=== PATIENT | female | born 1995 | race Caucasian/White ===

== ENCOUNTER 2017-08-18 03:50 | Emergency (ER) | payer OTHER ==
[~2017-08-18] VITALS: Ht 170.2 cm; Wt 70.8 kg
[2017-08-18 04:00] VITALS: BP_SYST 130
[2017-08-18 05:10] VITALS: BP_SYST 128
== END 2017-08-18 05:10 ==
LOC: SED 03:50
DX: Z02.89 Encounter for other administrative examinations (principal); S20.312A Abrasion of left front wall of thorax, initial encounter; V89.2XXA Person injured in unspecified motor-vehicle accident, traffic, initial encounter; Y93.89 Activity, other specified; Y92.89 Other specified places as the place of occurrence of the external cause; Y99.8 Other external cause status

== ENCOUNTER 2018-03-01 00:14 | Emergency (ER) | payer MEDICAID, OTHER ==
[~2018-03-01] VITALS: Ht 170.2 cm; Wt 65.3 kg
[2018-03-01 00:20] VITALS: BP_SYST 111
--- NOTE | 2018-03-01 00:20 | NUR ---
Patient to ER bed 7 to gown for evaluation. Side rails up. Report given to APURVA MAHONEY.
--- NOTE | 2018-03-01 00:34 | NUR ---
ER at bedside examining patient.
[2018-03-01] MEDS ORDERED: NACL 0.9% 1,000 ML IV ONE (00:36)
--- NOTE | 2018-03-01 00:37 | NUR ---
Patient brought in with boyfriend complaining of severe stabbing pelvic pain starting an hour and half prior to arrival to ED. Patient reports that she took a pill for on Sunday and has been passing clots since then but with little to no pain. Pain 10/10. No other complaints/injuries per patient or as noted. Will continue to monitor.
[2018-03-01] MEDS ORDERED: KETOROLAC TROMETHAMINE 30 MG VIAL IVP ONE (00:45)
[2018-03-01] MEDS ORDERED: ONDANSETRON HCL 4 MG/2 ML VIAL IVP ONE (00:45)
[2018-03-01] MEDS ORDERED: MORPHINE 4 MG/ML INJ. SYRINGE IVP ONE ×2 (00:45→01:15)
--- NOTE | 2018-03-01 00:49 | NUR ---
Medicated per MD orders. IVF infusing with no s/s of infiltration at this time. Will cont to monitor
[2018-03-01 01:06] LABS: BASOPHILS # (AUTO) 0.1 K/uL (0.0-0.2); BASOPHILS % (AUTO) 0.4 % (0.0-2.0); EOSINOPHILS # (AUTO) 0.3 K/uL (0.0-0.4); EOSINOPHILS % (AUTO) 2.6 % (0.0-4.0); HEMATOCRIT 37.4 % (36-48); LYMPHOCYTES # (AUTO) 3.6 K/uL (1.0-5.5); LYMPHOCYTES % (AUTO) 28.2 % (20.5-51.5); MEAN CORPUSCULAR HEMOGLOBIN 33 pg (27-31); MEAN CORPUSCULAR HGB CONC 35 % (32-36); MEAN CORPUSCULAR VOLUME 95 fL (79.0-98.0); MONOCYTES # (AUTO) 0.8 K/uL (0.0-1.0); MONOCYTES % (AUTO) 6.3 % (1.7-9.3); NEUTROPHILS # (AUTO) 8.1 K/uL (1.8-7.7); NEUTROPHILS % (AUTO) 62.5 % (40.0-70.0); PLATELET COUNT (AUTO) 322 K/uL (130-430); RED BLOOD CELL COUNT(AUTO) 3.92 MIL/uL (4.2-6.2); RED CELL DISTRIBUTION WIDTH 11.6 % (9.0-15.0); WHITE BLOOD COUNT (AUTO) 12.9 K/uL (4.8-10.8)
--- NOTE | 2018-03-01 01:08 | NUR ---
Accompanied Dr. Keita to perform pelvic exam. Pt tolerated well.
[2018-03-01] MEDS ORDERED: DIPHENHYDRAMINE INJ 50 MG/ML VIAL IVP ONE (01:15)
--- NOTE | 2018-03-01 01:16 | NUR ---
Medicated per MD orders. Will cont to monitor
[2018-03-01] MEDS ORDERED: HYDROmorphone 1 MG INJ. 1 MG/ML AMPUL IVP ONE ×2 (01:30→02:15)
--- NOTE | 2018-03-01 01:32 | NUR ---
Patient off unit to ultrasound.
--- NOTE | 2018-03-01 01:50 | NUR ---
Patient returned from ultrasound. VSS. Will continue to monitor.
--- NOTE | 2018-03-01 01:54 | NUR ---
Medicated with Diuladed 0.5 mg IVP. Patient tolerated well.
--- NOTE | 2018-03-01 02:25 | NUR ---
Medicated with IV Diuladid 0.5 mg. Patient tolerated well. Will continue to monitor
[2018-03-01 03:00] VITALS: BP_SYST 110
--- NOTE | 2018-03-01 03:00 | NUR ---
Patient given written and verbal discharge instructions and verbalizes understanding. ER MD discussed with patient the results and treatment provided. Patient in stable condition. ID arm band removed. IV catheter removed intact and dressing applied, no active bleeding. Rx of [place] given. Patient educated on pain management and to follow up with PMD in the morning. Pain Scale 4/10 Opportunity for questions provided and answered. Medication side effect fact sheet provided.
== END 2018-03-01 03:00 | disposition home or self-care (01) ==
LOC: SED 00:14
DX: O03.4 Incomplete spontaneous abortion without complication (principal)
CPT/HCPCS: 36415; 76805; 84702; 85025; 86900; 86901; 96361; 96374; 96375; 99285; J1170; J1200; J1885; J2270; J2405; J7030

== ENCOUNTER 2019-06-06 15:54 | Emergency (ER) | payer OTHER, BC ==
[~2019-06-06] VITALS: Ht 177.8 cm; Wt 61.2 kg
[2019-06-06 15:55] VITALS: BP_SYST 115
--- NOTE | 2019-06-06 15:55 | NUR ---
BROUGHT BACK TO BED #7 AND TRIAGED, REPORT GIVEN TO TATIANA
--- NOTE | 2019-06-06 16:05 | NUR ---
DR LR AT BEDSIDE FOR EVALUATION
[2019-06-06] MEDS ORDERED: ALBUTEROL SULFATE 0.083% 2.5 MG/3 ML VIAL.NEB INH ONE (16:15)
--- NOTE | 2019-06-06 16:18 | NUR ---
BREATHING TREATMENT ONGOING.
[2019-06-06] MEDS ORDERED: AMOXICILLIN/CLAVULANATE POTASSIUM 875 MG TABLET PO ONE (16:30)
--- NOTE | 2019-06-06 16:41 | NUR ---
Patient given written and verbal discharge instructions and verbalizes understanding. ER MD discussed with patient the results and treatment provided. Patient in stable condition. ID arm band removed. Rx of AUGMENTIN,ALBUTEROL given. Patient educated on pain management and to follow up with PMD. Pain Scale 0. Opportunity for questions provided and answered. Medication side effect fact sheet provided.
== END 2019-06-06 16:41 | disposition home or self-care (01) ==
LOC: SED 15:54
DX: J40 Bronchitis, not specified as acute or chronic (principal); R07.9 Chest pain, unspecified
CPT/HCPCS: 94150; 94640; 99283; J7613